=== PATIENT | male | born 1955 | race Hispanic/Latino ===

== ENCOUNTER 2018-06-21 00:29 | Emergency (ER) | payer SELFPAY ==
--- OUTSIDE RECORDS SUMMARY | 2018-06-21 00:32 | XMS REPORT ---
:1955 [facility] Address [address] [place] [address] Care Team Providers Name Role Phone Unavailable Unavailable Unavailable Problems This patient has no known problems. Allergies, Adverse Reactions, Alerts This patient has no known allergies or adverse reactions. Medications This patient has no known medications. Encounters Start End Encounter Admission Attending Care Care Encounter Date/Time Date/Time Type Type Clinicians Facility Department ID 2018-05-15 Inpatient [facility] [id number] 06:05:51 2018-05-09 Inpatient [facility] [id number] 00:00:00 2018-01-13 Inpatient [facility] [id number] 10:35:55 2018-01-06 Inpatient [facility] [id number] 00:00:00 2018-08-21 2018-08-21 Outpatient [facility] [id number] 00:00:00 00:00:00 2018-07-17 2018-07-17 Outpatient [facility] [id number] 00:00:00 00:00:00 2018-07-09 2018-07-09 Outpatient [facility] [id number] 00:00:00 00:00:00 2018-06-19 2018-06-19 Outpatient [facility] [id number] 09:12:31 09:12:31 2018-06-16 2018-06-16 Outpatient [facility] [id number] 12:43:44 12:43:44 2018-06-10 2018-06-10 Outpatient [facility] [id number] 15:48:14 15:48:14 2018-06-05 2018-06-05 Outpatient [facility] [id number] 13:27:54 13:27:54 2018-05-14 2018-05-14 Emergency [facility] [id number] 22:32:10 22:32:10 2018-05-14 2018-05-14 Emergency [facility] [id number] 22:16:29 22:16:29 2018-05-14 2018-05-14 [facility] [id number] 20:46:09 20:46:09 2018-05-14 2018-05-14 Emergency [facility] [id number] 00:00:00 00:00:00 2018-05-08 2018-05-08 Outpatient [facility] [id number] 12:57:53 12:57:53 2018-05-07 2018-05-07 Outpatient [facility] [id number] 13:15:46 13:15:46 2018-05-06 2018-05-06 Outpatient [facility] [id number] 13:35:19 13:35:19 2018-05-06 2018-05-06 Outpatient [facility] [id number] 12:03:13 12:03:13 2018-05-05 2018-05-05 Outpatient [facility] [id number] 13:10:08 13:10:08 2018-05-02 2018-05-02 Outpatient [facility] [id number] 12:51:07 12:51:07 2018-05-01 2018-05-01 Outpatient [facility] [id number] 13:06:54 13:06:54 2018-04-30 2018-04-30 Outpatient [facility] [id number] 15:38:22 15:38:22 2018-04-29 2018-04-29 Outpatient [facility] [id number] 16:44:29 16:44:29 2018-04-29 2018-04-29 Outpatient [facility] [id number] 16:20:55 16:20:55 2018-04-28 2018-04-28 Outpatient [facility] [id number] 10:46:07 10:46:07 2018-04-28 2018-04-28 Outpatient [facility] [id number] 10:21:21 10:21:21 2018-04-22 2018-04-22 Outpatient [facility] [id number] 16:34:02 16:34:02 2018-04-16 2018-04-16 Outpatient [facility] [id number] 14:44:57 14:44:57 2018-04-16 2018-04-16 Outpatient [facility] [id number] 13:06:18 13:06:18 2018-04-16 2018-04-16 Outpatient [facility] [id number] 09:38:06 09:38:06 2018-04-08 2018-04-08 Outpatient [facility] [id number] 15:34:00 15:34:00 2018-04-03 2018-04-03 Outpatient [facility] [id number] 09:42:22 09:42:22 2018-03-03 2018-03-03 Outpatient [facility] [id number] 08:07:14 08:07:14 2018-02-16 2018-02-16 Emergency [facility] [id number] 15:49:57 15:49:57 2018-02-16 2018-02-16 Outpatient [facility] [id number] 14:24:00 14:24:00 2018-02-03 2018-02-03 Outpatient [facility] [id number] 10:04:13 10:04:13 2018-01-29 2018-01-29 Outpatient [facility] [id number] 00:00:00 00:00:00 2018-01-20 2018-01-20 Outpatient [facility] [id number] 12:42:45 12:42:45 2018-01-20 2018-01-20 Outpatient [facility] [id number] 08:06:44 08:06:44 2017-12-30 2017-12-30 Outpatient [facility] [id number] 07:58:01 07:58:01 2017-12-25 2017-12-25 Outpatient [facility] [id number] 12:01:29 12:01:29 2017-12-06 2017-12-06 Outpatient [facility] [id number] 10:43:11 10:43:11 2017-12-06 2017-12-06 Outpatient [facility] [id number] 10:41:23 10:41:23 2017-12-06 2017-12-06 Outpatient [facility] [id number] 00:00:00 00:00:00 2017-11-04 2017-11-04 Outpatient [facility] [id number] 09:38:36 09:38:36 2017-11-04 2017-11-04 Outpatient [facility] [id number] 00:00:00 00:00:00 2017-10-23 2017-10-23 Outpatient [facility] [id number] 09:15:28 09:15:28 2017-10-07 2017-10-07 Outpatient [facility] [id number] 09:32:14 09:32:14 2017-10-07 2017-10-07 Outpatient [facility] [id number] 00:00:00 00:00:00 2017-10-04 2017-10-04 Outpatient [facility] [id number] 00:00:00 00:00:00 2017-09-26 2017-09-26 Outpatient [facility] [id number] 12:09:51 12:09:51 2017-09-25 2017-09-25 [facility] [id number] 15:02:41 15:02:41 2017-09-09 2017-09-09 [facility] [id number] 09:52:56 09:52:56 2017-09-03 2017-09-03 Outpatient [facility] [id number] 07:26:07 07:26:07 2017-08-30 2017-08-30 Outpatient [facility] [id number] 00:00:00 00:00:00 2017-08-05 2017-08-05 Outpatient [facility] [id number] 09:43:47 09:43:47 2017-08-05 2017-08-05 Outpatient [facility] [id number] 09:25:24 09:25:24 2017-07-29 2017-07-29 Outpatient [facility] [id number] 00:00:00 00:00:00 2017-07-08 2017-07-08 Outpatient [facility] [id number] 09:18:02 09:18:02 2017-07-01 2017-07-01 [facility] [id number] 14:05:45 14:05:45 2017-06-10 2017-06-10 [facility] [id number] 10:11:08 10:11:08 2017-06-10 2017-06-10 [facility] [id number] 09:57:24 09:57:24 2017-06-10 2017-06-10 Outpatient [facility] [id number] 00:00:00 00:00:00 2017-06-03 2017-06-03 Outpatient [facility] [id number] 10:04:46 10:04:46 2017-05-31 2017-05-31 [facility] [id number] 07:18:57 07:18:57 2017-05-24 2017-05-24 [facility] [id number] 14:29:37 14:29:37 2017-05-13 2017-05-13 [facility] [id number] 12:32:46 12:32:46 2017-05-13 2017-05-13 Outpatient [facility] [id number] 00:00:00 00:00:00 2017-05-12 2017-05-12 Emergency [facility] [id number] 10:05:16 10:05:16 2017-05-06 2017-05-06 Outpatient [facility] [id number] 10:59:00 10:59:00 2017-05-06 2017-05-06 Outpatient [facility] [id number] 00:00:00 00:00:00 2017-05-02 2017-05-02 Outpatient [facility] [id number] 11:04:19 11:04:19 2017-04-24 2017-04-24 Outpatient [facility] [id number] 14:57:00 14:57:00 2017-04-22 2017-04-22 Outpatient [facility] [id number] 07:55:22 07:55:22 2017-04-22 2017-04-22 Outpatient [facility] [id number] 00:00:00 00:00:00 2017-04-08 2017-04-08 Outpatient [facility] [id number] 11:43:52 11:43:52 2017-04-08 2017-04-08 Outpatient [facility] [id number] 11:07:15 11:07:15 2017-04-08 2017-04-08 Outpatient [facility] [id number] 10:56:36 10:56:36 2017-04-05 2017-04-05 Outpatient [facility] [id number] 13:59:19 13:59:19 2017-04-02 2017-04-02 Outpatient [facility] [id number] 09:20:44 09:20:44 2017-03-07 2017-03-07 Outpatient [facility] [id number] 10:51:48 10:51:48 2017-03-06 2017-03-06 Outpatient [facility] [id number] 13:42:42 13:42:42 2017-03-06 2017-03-06 Outpatient [facility] [id number] 00:00:00 00:00:00 2017-02-25 2017-02-25 Outpatient [facility] [id number] 10:07:40 10:07:40 2017-02-21 2017-02-21 Outpatient [facility] [id number] 00:00:00 00:00:00 2017-01-30 2017-01-30 Outpatient [facility] [id number] 13:56:16 13:56:16 2017-01-28 2017-01-28 Outpatient [facility] [id number] 13:45:20 13:45:20 2017-01-28 2017-01-28 [facility] [id number] 11:35:38 11:35:38 2017-01-28 2017-01-28 [facility] [id number] 10:41:15 10:41:15 2017-01-18 2017-01-18 Outpatient [facility] [id number] 00:00:00 00:00:00 2016-12-10 2016-12-10 Outpatient [facility] [id number] 15:16:41 15:16:41 2016-12-03 2016-12-03 Outpatient [facility] [id number] 10:01:47 10:01:47 2016-11-26 2016-11-26 [facility] [id number] 09:06:11 09:06:11 2016-11-26 2016-11-26 Outpatient [facility] [id number] 00:00:00 00:00:00 2016-11-23 2016-11-23 Outpatient [facility] [id number] 10:16:45 10:16:45 2016-11-02 2016-11-02 Outpatient [facility] [id number] 00:00:00 00:00:00 2016-10-29 2016-10-29 [facility] [id number] 13:22:47 13:22:47 2016-10-15 2016-10-15 [facility] [id number] 14:18:04 14:18:04 2016-10-15 2016-10-15 [facility] [id number] 12:16:48 12:16:48 2016-10-15 2016-10-15 [facility] [id number] 08:57:08 08:57:08 2016-10-15 2016-10-15 [facility] [id number] 08:02:58 08:02:58 2016-10-01 2016-10-01 [facility] [id number] 11:04:13 11:04:13 2016-10-01 2016-10-01 [facility] [id number] 09:39:10 09:39:10 2016-09-27 2016-09-27 [facility] [id number] 12:40:38 12:40:38 2016-09-27 2016-09-27 [facility] [id number] 12:18:01 12:18:01 2016-09-24 2016-09-24 [facility] [id number] 10:30:54 10:30:54 2016-09-12 2016-09-12 [facility] [id number] 13:00:31 13:00:31 2016-08-27 2016-08-27 [facility] [id number] 13:20:48 13:20:48 2016-08-27 2016-08-27 Outpatient [facility] [id number] 12:20:30 12:20:30 2016-08-27 2016-08-27 Outpatient [facility] [id number] 00:00:00 00:00:00 2016-08-27 2016-08-27 [facility] [id number] 00:00:00 00:00:00 2016-08-17 2016-08-17 [facility] [id number] 12:46:21 12:46:21 2016-08-17 2016-08-17 [facility] [id number] 09:35:04 09:35:04 2016-08-17 2016-08-17 Outpatient [facility] [id number] 07:47:14 07:47:14 2016-08-14 2016-08-14 Outpatient [facility] [id number] 00:00:00 00:00:00 2016-08-06 2016-08-06 Outpatient [facility] [id number] 13:13:32 13:13:32 2016-08-06 2016-08-06 [facility] [id number] 11:39:43 11:39:43 2016-08-06 2016-08-06 [facility] [id number] 11:13:21 11:13:21 2016-08-02 2016-08-02 [facility] [id number] 12:24:50 12:24:50 2016-07-31 2016-07-31 [facility] [id number] 07:29:53 07:29:53 2016-07-30 2016-07-30 [facility] [id number] 08:03:54 08:03:54 2016-07-16 2016-07-16 [facility] [id number] 08:58:44 08:58:44 2016-07-16 2016-07-16 [facility] [id number] 08:26:32 08:26:32 2015-12-23 2015-12-23 [facility] [id number] 12:06:11 12:06:11
[2018-06-21 01:55] LABS: Absolute Neutrophil 5.4 K/uL (1.8-8.0); Basophils % 0.6 % (0-1.3); Eosinophils % 1.4 % (0-4.4); Hematocrit 40.1 % (39.6-49.0); Lymphocytes % 14.7 % (15.3-44.8); Monocytes % 7.7 % (3.3-12.3); RBC Red Blood Cell Count 4.35 M/uL (4.33-5.43)
[2018-06-21 01:56] LABS: Absolute Monocytes 0.6 K/uL (0.1-1.3); Protime INR 0.97
[2018-06-21 02:11] LABS: ALT/SGPT 30 U/L (12-78); AST/SGOT 14 U/L (15-37); Albumin 3.2 g/dL (3.4-5.0); Alkaline Phosphatase 184 U/L (45-117); BUN Blood Urea Nitrogen 16 mg/dL (7-18); Bicarbonate 26 mmol/L (21-32); Bilirubin Direct < 0.1 mg/dL (0-0.2); Bilirubin Total 0.2 mg/dL (0.2-1.0); Glucose Level 163 mg/dL (74-106); Magnesium 1.8 mg/dL (1.8-2.4); Potassium 3.2 mmol/L (3.5-5.1); Protein, Total 6.9 g/dL (6.4-8.2); Sodium Level 141 mmol/L (136-145)
[2018-06-21 02:23] LABS: NT PRO-BNP 56 pg/mL (<125); Troponin (Emerg Dept Use Only) < 0.02 ng/mL (0.0-0.045)
[2018-06-21] MEDS ORDERED: MECLIZINE HCL 12.5 MG TAB ONE ×2 (03:02→03:33)
[2018-06-21] MEDS ORDERED: NA CHLORIDE 0.9% 1,000 ML ONE (03:03)
[2018-06-21] MEDS ORDERED: POTASSIUM 25 MEQ EFFERV TAB ONE (03:03)
--- NOTE | 2018-06-21 04:57 | ER ---
Nurse's Notes [facility] Name: Fritz Jara Age: 63 yrs Sex: Male : 1955 Arrival Date: 06/21/2018 Time: 00:31 Bed 5 Private MD: Diagnosis: Dizziness Presentation: 06/21 00:45 Presenting complaint: Patient states: Patient stated that when he attempted to go from cr4 a laying to sitting position he became very dizzy and lightheaded. The symptoms continued even when moving slowly from one position to another. Transition of care: patient was not received from another setting of care. Onset of symptoms was June 21, 2018. Risk Assessment: Do you want to hurt yourself or someone else? Patient reports no desire to harm self or others. Initial Sepsis Screen: Does the patient meet any 2 criteria? No. Patient's initial sepsis screen is negative. Does the patient have a suspected source of infection? Yes: No. Patient's initial sepsis screen is negative. Care prior to arrival: None. 00:45 Method Of Arrival: EMS: [facility] cr4 00:45 Acuity: DENISSE 3 cr4 Triage Assessment: 00:48 General: Appears comfortable, well groomed, Behavior is calm, cooperative, appropriate cr4 for age. Pain: Denies pain. EENT: No deficits noted. Neuro: Level of Consciousness is awake, alert, obeys commands, Oriented to person, place, time, situation, Appropriate for age Still Operator Helper are equal bilaterally Moves all extremities. Speech is normal, Facial symmetry appears normal, Reports dizziness, since when moving from laying to sitting even in slow manner which started tonight. Denies weakness blurred vision difficulty swallowing, numbness headache. Cardiovascular: No deficits noted. Reports syncope, Denies chest pain, palpitations, shortness of breath, Rhythm is regular. Respiratory: Breath sounds are clear bilaterally. Breath sounds are diminished bilaterally. Denies cough, shortness of breath. GI: Abdomen is flat, Colostomy site is intact. : Maguire in place to gravity drainage Urine is clear. Derm: No deficits noted. Musculoskeletal: No deficits noted. Historical: - Home Meds: 01:26 hydrocodone-acetaminophen 7.5-325 mg Oral tab 1 tab q6hr prn [Active]; ibuprofen 800 mg cr4 Oral tab 1 tab q4hrs prn [Active]; loperamide 2 mg Oral cap 2 caps 2 tabs with first loose vinny and one tab after each loose stool. [Active]; mirabegron oral 50 mg oral 1 tab once daily [Active]; omeprazole 20 mg Oral cpDR 2 caps once daily [Active]; ondansetron HCl 8 mg Oral tab 1 tab q 8hrs prn [Active]; One-A-Day VitaCraves 200 mcg oral chew daily [Active]; Pyridium 100 mg Oral tab 1 tab tidprn [Active]; Toprol XL 100 mg Oral Tb24 1 tab once daily [Active]; 03:56 amlodipine 10 mg tab 1 tab once daily [Active]; finasteride 5 mg oral tab 1 tab once cr4 daily [Active]; tamsulosin 0.4 mg oral cp24 2 caps once daily [Active]; acetaminophen-codeine 300-30 mg Oral tab 1 tab q4hrs prn [Active]; acetaminophen 500 mg Oral tab 2 tabs q6hrs prn for Pain [Active]; - PMHx: 03:56 Cancer; colon; Hypertension; urine retention; cr4 - PSHx: 03:56 Appendectomy; Colostomy; tae cath; colon resection; cr4 - Immunization history:: Adult Immunizations up to date, Pneumococcal vaccine is up to date, Flu vaccine is up to date. Meningococcal vaccine is up to date. - Social history:: Smoking status: Patient/guardian denies using tobacco, but has a distant history of tobacco abuse. - Ebola Screening: : No symptoms or risks identified at this time. Screenin:28 Abuse screen: Denies threats or abuse. Nutritional screening: No deficits noted. cr4 Tuberculosis screening: No symptoms or risk factors identified. Fall Risk No fall in past 12 months (0 pts). Secondary diagnosis (15 points) syncope. IV access (20 points). Ambulatory Aid- None/Bed Rest/Nurse Assist (0 pts). Gait- Impaired (20 pts.). Mental Status- Oriented to own ability (0 pts). Assessment: 00:29 General: see triage assessment. cr4 01:48 Reassessment: No changes from previously documented assessment. Neuro: Reports cr4 dizziness, a syncopal episode syncope when going from laying to sitting position. Patient with unsteady gait.. 03:02 Reassessment: Patient and/or family updated on plan of care and expected duration. Pain cr4 level reassessed. Patient is alert, oriented x 3, equal unlabored respirations, skin warm/dry/pink. 03:27 Neuro: Reports dizziness, a syncopal episode while sitting up and ambulating. GI: cr4 Patient currently denies nausea, vomiting. 04:53 Reassessment: Patient and/or family updated on plan of care and expected duration. Pain ea level reassessed. Pt ambulated approximately 15 ft without difficulty, tolerated well, pt reports his symptoms have improved, reports dizziness has resolved. Pt verbalized the understanding to follow up with PCP on Saturday. 05:05 Reassessment: Patient appears in no apparent distress at this time. Patient and/or cc3 family updated on plan of care and expected duration. Pain level reassessed. Patient is alert, oriented x 3, equal unlabored respirations, skin warm/dry/pink. Dr. Siddiqui discharged the patient home with prescription given. IV cannula removed and patient left ER vitally stable by wheelchair with his family. Vital Signs: 00:31 BP 149 / 87 LA; Pulse 71; Resp 17 S; Temp 98.4(O); Pulse Ox 95% on R/A; rv 01:45 BP 141 / 77 Supine; Pulse 76 RA; cr4 01:45 BP 136 / 81 Sitting; Pulse 76 RA; cr4 01:45 BP 132 / 81 RA Standing (man/); Pulse 75; cr4 02:30 BP 116 / 60; Pulse 69; Resp 16; Temp 98.4; Pulse Ox 96% ; Pain 0/10; cr4 03:30 BP 131 / 76; Pulse 65; Resp 16; Pulse Ox 96% ; Pain 0/10; cr4 04:55 BP 128 / 70; Pulse 68; Resp 18; Pulse Ox 97% on R/A; ea ED Course: 00:31 Patient arrived in ED. rv 00:48 Triage completed. cr4 01:00 Patient has correct armband on for positive identification. Placed in gown. Bed in low cr4 position. Side rails up X2. supervisor final on. Pulse ox on. 01:06 Esitven Galo PA is PHCP. cp 01:06 Moose Siddiqui MD is Attending Physician. cp 01:39 Radiology exam delayed due to Patient with attending nurse at this time. Not ready to kw1 travel to CT dept. 02:06 CT Head Brain wo Cont In Process Unspecified. EDMS 03:47 Elba Washington is Primary Nurse. cc3 03:58 patient notified he would be moved to room 5. cr4 04:00 Arm band placed on right wrist. cc3 04:55 No provider procedures requiring assistance completed. ea 05:05 IV discontinued, intact, bleeding controlled, No redness/swelling at site. Pressure cc3 dressing applied. Administered Medications: 03:01 Drug: NS 0.9% 1000 ml Route: IV; Rate: 1000 ml/hr; Site: left antecubital; cr4 04:00 Follow up: Response: No adverse reaction; IV Status: Completed infusion; IV Intake: ea 1000ml 03:01 Drug: Potassium Effervescent Tablet 50 mEq Route: PO; cr4 04:52 Follow up: Response: No adverse reaction ea 03:02 Drug: Meclizine 25 mg Route: PO; cr4 04:51 Follow up: Response: No adverse reaction; Marked relief of symptoms ea 03:27 Drug: Antivert 25 mg Route: PO; cr4 04:52 Follow up: Response: No adverse reaction; Marked relief of symptoms ea Intake: 04:00 IV: 1000ml; Total: 1000ml. ea 02:00 patient emptied colostomy and maguire in bathroom. cr4 Outcome: 04:56 Discharge ordered by . pkziyad 05:05 Discharged to home via wheelchair, with family. cc3 05:05 Condition: stable 05:05 Discharge instructions given to patient, family, Instructed on discharge instructions, follow up and referral plans. medication usage, Demonstrated understanding of instructions, follow-up care, medications, Prescriptions given X 1. 05:10 Patient left the ED. cc3 Signatures: Dispatcher [employer] EDMS Moose Siddiqui MD MD pkl Ruiz, Claudia RN RN cr4 Estiven Galo PA PA cp Antunez, Elena, RN RN Rita Callejas kw1 Sarwat Ventura RN RN rv Cordel, Charlene cc3
--- NOTE | 2018-06-21 04:57 | EDPHYS ---
Physician Documentation [facility] Name: Fritz Jara Age: 63 yrs Sex: Male : 1955 Arrival Date: 06/21/2018 Time: 00:31 Bed 5 Private MD: ED Physician Moose Siddiqui HPI: 06/21 01:20 This 63 yrs old Male presents to ER via EMS with complaints of dizziness. cp 01:20 The patient presents with dizziness, lightheadedness, feeling off balance. Onset: The cp symptoms/episode began/occurred today. 01:20 Context: occurred while the patient was sitting up from lying down. just prior to the cp episode the patient experienced no apparent symptoms. Associated signs and symptoms: Pertinent positives: blurred vision, Pertinent negatives: abdominal pain, chest pain, diaphoresis, focal weakness, headache, palpitations, syncope. Severity of symptoms: in the emergency department the symptoms have resolved. Patient's baseline: Neuro: alert and fully oriented, Motor: no deficits, Ambulation: walks without assistance, Speech: normal. Historical: - Home Meds: 01:26 hydrocodone-acetaminophen 7.5-325 mg Oral tab 1 tab q6hr prn [Active]; ibuprofen 800 mg cr4 Oral tab 1 tab q4hrs prn [Active]; loperamide 2 mg Oral cap 2 caps 2 tabs with first loose vinny and one tab after each loose stool. [Active]; mirabegron oral 50 mg oral 1 tab once daily [Active]; omeprazole 20 mg Oral cpDR 2 caps once daily [Active]; ondansetron HCl 8 mg Oral tab 1 tab q 8hrs prn [Active]; One-A-Day VitaCraves 200 mcg oral chew daily [Active]; Pyridium 100 mg Oral tab 1 tab tidprn [Active]; Toprol XL 100 mg Oral Tb24 1 tab once daily [Active]; 03:56 amlodipine 10 mg tab 1 tab once daily [Active]; finasteride 5 mg oral tab 1 tab once cr4 daily [Active]; tamsulosin 0.4 mg oral cp24 2 caps once daily [Active]; acetaminophen-codeine 300-30 mg Oral tab 1 tab q4hrs prn [Active]; acetaminophen 500 mg Oral tab 2 tabs q6hrs prn for Pain [Active]; - PMHx: 03:56 Cancer; colon; Hypertension; urine retention; cr4 - PSHx: 03:56 Appendectomy; Colostomy; tae cath; colon resection; cr4 - Immunization history:: Adult Immunizations up to date, Pneumococcal vaccine is up to date, Flu vaccine is up to date. Meningococcal vaccine is up to date. - Social history:: Smoking status: Patient/guardian denies using tobacco, but has a distant history of tobacco abuse. - Ebola Screening: : No symptoms or risks identified at this time. ROS: 01:25 Constitutional: Negative for body aches, chills, fever, poor PO intake. cp 01:25 Eyes: Negative for injury, pain, redness, and discharge. cp 01:25 ENT: Negative for drainage from ear(s), ear pain, sore throat, difficulty swallowing, difficulty handling secretions. 01:25 Cardiovascular: Negative for chest pain, edema, palpitations. 01:25 Respiratory: Negative for cough, shortness of breath, wheezing. 01:25 Abdomen/GI: Negative for abdominal pain, nausea, vomiting, and diarrhea, black/tarry stool. 01:25 Back: Negative for pain at rest, pain with movement. 01:25 : Negative for urinary symptoms. 01:25 Skin: Negative for rash. 01:25 Neuro: Positive for dizziness, Negative for altered mental status, headache, speech changes, syncope, weakness. 01:25 All other systems are negative. Exam: 01:30 Constitutional: The patient appears in no acute distress, alert, awake, cp non-diaphoretic, non-toxic, well developed, well nourished. 01:30 Head/Face: Normocephalic, atraumatic. cp 01:30 Eyes: Pupils equal round and reactive to light, extra-ocular motions intact. Lids and cp lashes normal. Conjunctiva and sclera are non-icteric and not injected. Cornea within normal limits. Periorbital areas with no swelling, redness, or edema. ENT: Nares patent. No nasal discharge, no septal abnormalities noted. Tympanic membranes are normal and external auditory canals are clear. Oropharynx with no redness, swelling, or masses, exudates, or evidence of obstruction, uvula midline. Mucous membranes moist. Chest/axilla: Normal chest wall appearance and motion. Nontender with no deformity. No lesions are appreciated. 01:30 Cardiovascular: Rate: normal, Rhythm: regular, Pulses: Pulses are 2+ in right radial artery and left radial artery. Edema: is not appreciated, JVD: is not appreciated. 01:30 Respiratory: the patient does not display signs of respiratory distress, Respirations: cp normal, no use of accessory muscles, no retractions, no splinting, no tachypnea, labored breathing, is not present, Breath sounds: are clear throughout, no decreased breath sounds, no stridor, no wheezing. 01:30 Abdomen/GI: Inspection: colostomy bag LLQ, Bowel sounds: active, all quadrants, Palpation: soft, in all quadrants, mild abdominal tenderness, in the right lower quadrant, rebound tenderness, is not appreciated, voluntary guarding, is elicited in the right lower quadrant, involuntary guarding, is not appreciated. 01:30 Neuro: Orientation: to person, place \T\ time. Mentation: is normal, Cerebellar function: is grossly normal, Motor: moves all fours, strength is normal, Sensation: is normal. Vital Signs: 00:31 BP 149 / 87 LA; Pulse 71; Resp 17 S; Temp 98.4(O); Pulse Ox 95% on R/A; rv 01:45 BP 141 / 77 Supine; Pulse 76 RA; cr4 01:45 BP 136 / 81 Sitting; Pulse 76 RA; cr4 01:45 BP 132 / 81 RA Standing (man/); Pulse 75; cr4 02:30 BP 116 / 60; Pulse 69; Resp 16; Temp 98.4; Pulse Ox 96% ; Pain 0/10; cr4 03:30 BP 131 / 76; Pulse 65; Resp 16; Pulse Ox 96% ; Pain 0/10; cr4 04:55 BP 128 / 70; Pulse 68; Resp 18; Pulse Ox 97% on R/A; ea MDM: 01:06 Patient medically screened. cp 01:30 Differential diagnosis: cardiac arrhythmia, CVA, generalized weakness, GI bleed, cp hypovolemia, idiopathic dizziness, syncope, TIA, vertigo. 06/21 01:19 Order name: Basic Metabolic Panel; Complete Time: 02:27 cp 06/21 02:28 Interpretation: Normal except: K 3.2; CL 108; GLUC 163; CA 8.3. cp 06/21 01:19 Order name: CBC with Diff; Complete Time: 02:27 cp 06/21 01:19 Order name: LFT's; Complete Time: 02:27 cp 06/21 02:45 Interpretation: Normal except: AST 14; ALK 184; ALB 3.2; GLOB 3.7; A/G 0.9. cp 06/21 01:19 Order name: Magnesium; Complete Time: 02:27 cp 06/21 01:19 Order name: NT PRO-BNP; Complete Time: 02:27 cp 06/21 01:19 Order name: PT-INR; Complete Time: 02:27 cp 06/21 01:19 Order name: Orthostatics; Complete Time: 03:30 cp 06/21 01:19 Order name: Troponin (emerg Dept Use Only); Complete Time: 02:27 cp 06/21 01:19 Order name: EKG; Complete Time: 01:20 cp 06/21 01:25 Order name: CT Head Brain wo Cont cp 06/21 01:19 Order name: Cardiac monitoring; Complete Time: 01:45 cp 06/21 01:19 Order name: EKG - Nurse/Tech; Complete Time: 01:45 cp 06/21 01:19 Order name: IV Saline Lock; Complete Time: 01:45 cp 06/21 01:19 Order name: Labs collected and sent; Complete Time: 01:44 cp 06/21 01:19 Order name: O2 Per Protocol; Complete Time: 01:44 cp 06/21 01:19 Order name: O2 Sat Monitoring; Complete Time: 01:44 cp Administered Medications: 03:01 Drug: NS 0.9% 1000 ml Route: IV; Rate: 1000 ml/hr; Site: left antecubital; cr4 04:00 Follow up: Response: No adverse reaction; IV Status: Completed infusion; IV Intake: ea 1000ml 03:01 Drug: Potassium Effervescent Tablet 50 mEq Route: PO; cr4 04:52 Follow up: Response: No adverse reaction ea 03:02 Drug: Meclizine 25 mg Route: PO; cr4 04:51 Follow up: Response: No adverse reaction; Marked relief of symptoms ea 03:27 Drug: Antivert 25 mg Route: PO; cr4 04:52 Follow up: Response: No adverse reaction; Marked relief of symptoms ea Disposition: 04:54 Co-signature as Attending Physician, Moose Siddiqui MD. pkl Disposition: 06/21/18 04:56 Discharged to Home. Impression: Dizziness. - Condition is Stable. - Medication Reconciliation Form, Thank You Letter, Antibiotic Education, Prescription Opioid Use form. - Follow up: Private Physician; When: 2 - 3 days; Reason: Re-evaluation by your physician. - Problem is new. - Symptoms are resolved. Signatures: Dispatcher [employer] EDMS Moose Siddiqui MD MD pkl Mana Pedro RN RN cr4 Estiven Galo PA PA cp Cordel, Charlene cc3 Madelyn Moore RN, ea Corrections: (The following items were deleted from the chart) 02:28 02:27 Normal except: K 3.2; CL 108; GLUC 163. cp cp 05:10 04:56 06/21/2018 04:56 Discharged to Home. Impression: Dizziness. Condition is Stable. cc3 Forms are Medication Reconciliation Form, Thank You Letter, Antibiotic Education, Prescription Opioid Use. Follow up: Private Physician; When: 2 - 3 days; Reason: Re-evaluation by your physician. Problem is new. Symptoms are resolved. pkl
--- NOTE | 2018-06-21 11:45 | RAD REPORT ---
EXAM DESCRIPTION: CT - Head Brain Wo Cont - 06/21/2018 2:24 am CLINICAL HISTORY: 63 years Male DIZZINESS COMPARISON: None TECHNIQUE: Contiguous axial images of the brain were obtained without the administration of intraven ous contrast.This exam was performed according to our departmental dose-optimization program which in cludes use of Automated Exposure Control, adjustment of the mA and/or kV according to patient size an d/or use of iterative reconstruction technique. FINDINGS: Brain: No acute intracranial hemorrhage. No acute territorial infarct. No extra-axial radha ection. No mass effect or herniation. Mild prominence of the sulci, cisterns and bifrontal CSF spac es . Ventricles: Within normal limits in size. Globes and orbits: No acute abnormality. Bones: No acute osseous finding. Paranasal sinuses: Paranasal sinuses are clear. Frontal sinuses are hypoplastic.. Mastoid air cells: Well pneumatized.. Soft tissues: Within normal limits Razor Grinder view shows no additional significant finding IMPRESSION: No acute intracranial abnormality. Mild cerebral volume loss. Electronically signed by: South Simpson DO 06/21/2018 2:18 AM CDT Due to temporary technical issues with the PACS/Fluency reporting system, reports are being signed by the in house radiologist as a courtesy to ensure prompt reporting. The interpreting radiologist is f ully responsible for the content of the report.
--- NOTE | 2018-06-24 11:29 | EKG ---
Test Date: 2018-06-21 Test Time: 01:00:01 Machine Cleaner: MEASUREMENT RESULTS: Intervals: Rate: 76 MO: 190 QRSD: 92 QT: 400 QTc: 450 [place]: P: 31 MO: 190 QRS: -3 T: 21 INTERPRETIVE STATEMENTS: Normal sinus rhythm Normal ECG No previous ECG available for comparison Electronically Signed On 06-21-18 16:43:41 CDT by Aniket Peter
== END 2018-06-21 05:10 | disposition home or self-care (01) ==
LOC: ER 00:29
DX: R42 Dizziness and giddiness (principal); I10 Essential (primary) hypertension; Z85.038 Personal history of other malignant neoplasm of large intestine
CPT/HCPCS: 36415; 70450; 80048; 80076; 83735; 83880; 84484; 85025; 85610; 93005; 96360; 99284; J7030